=== PATIENT | female | born 1980 | race Caucasian/White ===

== ENCOUNTER 2018-05-06 05:40 | Day surgery (SDC) | payer OTHER ==
[~2018-05-06] VITALS: Ht 170.2 cm; Wt 170.1 kg
--- NOTE | ~2018-05-06 | OR ---
[facility] [address] [place], [place] [address] Draft DATE OF OPERATION: 05/06/2018 SURGEON: Jesus Helm MD PREOPERATIVE DIAGNOSIS: Interstitial cystitis. POSTOPERATIVE DIAGNOSIS: Interstitial cystitis. PROCEDURE PERFORMED: Diagnostic cystoscopy with hydrodistention. ANESTHESIA: General with LMA. ESTIMATED BLOOD LOSS: None. COMPLICATIONS: None. SPECIMENS: None. INDICATIONS FOR PROCEDURE: Joann is a very pleasant 38-year-old female with a longstanding history of urinary urgency, frequency, dysuria, and suprapubic symptoms. She was just recently diagnosed with interstitial cystitis and has been managing her symptoms with diet control and oral Pyridium. Our most recent office visit, I discussed the option of undergoing hydrodistention with the patient. After a discussion of the risks and benefits of the procedure, the patient agreed to proceed. OPERATIVE FINDINGS: On cystoscopy, there was no evidence of any suspicious masses, lesions, or stones within the bladder. Bilateral ureteral orifices are in their normal anatomic location, effluxing clear urine. Overall, the patient's bladder appeared rather normal, given her history of severe symptoms. There was just one area on the posterior bladder wall that revealed some superficial mucosal blood vessels. I did not see any diffuse areas of erythema or Hunner's ulcers. PATIENT NAME: JOANN SMITH OPERATIVE REPORT DATE OF : 80 REPORT #: [id number] PHYSICIAN: JESUS HELM MD PCP: JIGNESH GARCIA REPORT IS CONFIDENTIAL AND NOT TO BE RELEASED WITHOUT AUTHORIZATION [facility] [address] [place], [place] [address] Draft The patient's total bladder capacity was approximately 1100 mL. This was held within the patient's bladder for around 8 minutes. DESCRIPTION OF PROCEDURE: After informed consent was obtained, the patient was taken back to the operating room. She was transferred from the [facility] to the operating room table, where general anesthesia was induced. She was placed in the dorsal lithotomy position and the genitalia prepped and draped in standard sterile fashion. Using a 30-degree lens on a 22.5 Telugu introducer, rigid cystoscope was inserted through the urethra into her bladder under direct visualization. The patient's bladder was then emptied of urine. I then performed a diagnostic cystoscopy and evaluated all areas of the bladder in court, including the floor dome, trigone, and lateral tobias. Please see above findings. I then filled the patient's bladder with a total of 1100 mL of water. The patient's bladder remained distended for approximately 8 minutes. I then emptied the patient's bladder and removed the cystoscope. Two 16.2/30 belladonna and opioid suppositories were then inserted into the patient's rectum at the end of the procedure. The procedure was then terminated. The patient tolerated the procedure well without any complications. She will now be transferred to the Postanesthesia Care Unit in stable condition. DISPOSITION: I discussed the details of today's procedure with the patient's significant other and answered all his questions. I explained to him that the patient was given two belladonna and opioid suppository to prevent bladder spasms that she is waking up. She will also be sent home today with Bactrim for a total of 5 days for prophylaxis, along with additional Pyridium as needed for dysuria. She will be scheduled to return to clinic in approximately 6 weeks for her first postoperative evaluation. MD JAIME Byrd/STARLA /[id number] Copies: PATIENT NAME: JOANN SMITH OPERATIVE REPORT DATE OF : 80 REPORT #: [id number] PHYSICIAN: JESUS HELM MD PCP: JIGNESH GARCIA REPORT IS CONFIDENTIAL AND NOT TO BE RELEASED WITHOUT AUTHORIZATION [address] [place] [address] Draft ~ PATIENT NAME: JOANN SMITH OPERATIVE REPORT DATE OF : 80 REPORT #: [id number] PHYSICIAN: JESUS HELM MD PCP: JIGNESH GARCIA REPORT IS CONFIDENTIAL AND NOT TO BE RELEASED WITHOUT AUTHORIZATION
[~2018-05-06 05:40] MED LIST: ALPRAZOLAM1 MG PO; DEPO-PROVER150 MG/ML IM; DIFLUCAN150 MG PO; DIPHENOXYLATE-1 EACH PO; GABAPENTIN100 MG PO; NORTRIPTYLINE H10 MG PO; PSEUDOEPHEDRINE30 MG PO; PYRIDIUM200 MG PO; RANITIDINE HCL150 MG PO; SERTRALINE HCL100 MG PO; SERTRALINE HCL50 MG PO; VITAMIN D2000 UNI1 PO
[2018-05-06] MEDS ORDERED: TOPROL XL25 MG PO (06:48)
--- NOTE | 2018-05-06 08:47 | NUR ---
05/06/18 0847 Liberty Mayes 0869 PT ARRIVED TO PACU WITH ORAL AIRWAY IN PLACE.
--- NOTE | 2018-05-06 08:59 | NUR ---
PT IS BACK TO FROM PACU. SHE IS AWAKE AND REPORTS PAIN AT A 3/10. NO NAUSEA AT THIS TIME. SIGNIFICANT OTHER IS AT THE BEDSIDE. CALL LIGHT IS WITHIN REACH. WATER ON BEDSIDE TABLE. NO OTHER C/O'S AT THIS TIME WILL REASSESS WITHIN THE HOUR.
--- NOTE | 2018-05-06 10:04 | NUR ---
PT'S PAIN IS DECREASING. SHE IS AGREEABLE TO EATING SOME JELLO. NO OTHER C/O'S AT THIS TIME.
--- NOTE | 2018-05-06 10:40 | NUR ---
LE 1005: PT IS ASSISTED UP OOB TO THE RESTROOM WHERE IS ABLE TO VOID 100ML'S. SHE IS ALSO GIVEN AZO AT THIS TIME. PT REPORTS THAT SHE WOULD LIKE TO GO HOME. SHE IS INSTRUCTED ON BEST HOW TO DRESS, GIVEN DC INSTRUCTIONS, AND HER IV IS REMOVED.
--- NOTE | 2018-05-06 11:46 | EKG ---
[facility] [address] [facility] [place], [place] [address] Signed Normal sinus rhythm Normal ECG No previous ECGs available Confirmed by KEIRA WILEY MD ([id number]) on 05/06/2018 11:45:51 AM Electronically Signed By: KEIRA WILEY MD 05/06/18 1146 PATIENT NAME: MITA SMITH Electrocardiogram DATE OF : 80 PHYSICIAN: KEIRA WILEY MD REPORT #: [id number] REPORT IS CONFIDENTIAL AND NOT TO BE RELEASED WITHOUT AUTHORIZATION
--- NOTE | 2018-05-06 13:14 | NUR ---
VISITED WITH PT BEFORE SURGERY. SHE IS ALERT, ORIENTED AND SUPPORTED BY HER SIG. MARLINE KATHLEEN. THEY BOTH SEEM PREPARED, PT REQUESTED PRAYER, WILL FOLLOW NEEDED
== END 2018-05-06 10:30 | disposition home or self-care (01) ==
LOC: DS 05:40 → OPS 05:40 → DS 06:45 → OPS 10:30
PROVIDERS: Urology
PROC: 0T7B8ZZ Dilation of Bladder, Via Natural or Artificial Opening Endoscopic (ICD-10-PCS; principal; 2018-05-06 06:45)
DX: N30.10 Interstitial cystitis (chronic) without hematuria (principal); F32.9 Major depressive disorder, single episode, unspecified; J45.909 Unspecified asthma, uncomplicated; M06.9 Rheumatoid arthritis, unspecified; E66.01 Morbid (severe) obesity due to excess calories; Z88.0 Allergy status to penicillin; Z88.1 Allergy status to other antibiotic agents; Z91.041 Radiographic dye allergy status; Z79.899 Other long term (current) drug therapy; Z68.43 Body mass index [BMI] 50.0-59.9, adult
CPT/HCPCS: 00910; 84703; 93005; 93010; J0696; J2250; J2405; J2704; J3010; J7120

== ENCOUNTER 2020-10-25 09:50 | Day surgery (SDC) | payer OTHER ==
[~2020-10-25 09:50] MED LIST changes: +BUSPIRONE HCL5 MG PO; -GABAPENTIN100 MG PO; +MECLIZINE HCL12.5 MG PO; +NEURONTIN300 MG PO; +PANTOPRAZOLE SO20 MG PO; +SPIRONOLACTONE50 MG PO; +TOPROL XL25 MG PO
--- NOTE | 2020-10-25 13:55 | NUR ---
10/25/20 1355 [place] 1348 PT ARRIVED TO PACU WITH ORAL AIRWAY IN PLACE, RESP EVEN AND UNLABROED. VSS. PT NONAROUSBALE ON 6L VIA MASK.
--- NOTE | 2020-10-25 14:51 | NUR ---
PT ARRIVES TO DS RM 12 FROM PACU AWAKE AND ALERT. PT DENIES ANY NAUSEA AND TOLERATES WATER AND PUDDING. PT STATES PAIN 3/10 AND TOLERABLE AT THIS TIME. PER REPORT FROM ARTHUR, RN PT STATES "HEAVY CHEST." PT STATES TO THIS RN THAT "I AM FINE" WHEN ASKED ABOUT BREATHING, PT ENCOURAGED TO USE CALL LIGHT ANY CONCERNS. PT SPOUSE AT BEDSIDE, CALL LIGHT WITHIN REACH. YARITZA ESPINOSA ON WARM.
--- NOTE | 2020-10-25 15:01 | NUR ---
PT PROVIDED SECOND PUDDING AND SODA PER REQUEST, TOLERATES WEL.
--- NOTE | 2020-10-25 16:28 | NUR ---
1530 HELPED PT UP TO BATHROOM SHE VOIDED 50ML OF CLEAR YELLOW URINE. CALLED DR HELM TO SEE IF THIS WAS SUFFICIANT TO DISCHARGE HER, DR SUTTON FOR DISCHARGE.
--- NOTE | 2020-10-27 18:28 | OR ---
[facility] [address] [place], [place] [address] Signed DATE OF OPERATION: 10/25/2020 SURGEON: Jesus Helm MD PREOPERATIVE DIAGNOSIS: Interstitial cystitis. POSTOPERATIVE DIAGNOSIS: Interstitial cystitis. NAME OF PROCEDURE: Diagnostic cystoscopy with hydrodistention. ANESTHESIA: General. ESTIMATED BLOOD LOSS: None. COMPLICATIONS: None. SPECIMENS: None. DRAINS: None. INDICATIONS FOR PROCEDURE: Joann is a very pleasant 40-year-old female, who has a well known history of interstitial cystitis. She underwent her 1st cystoscopy with hydrodistention in the summer time of 2019, and reported to me that she did feel as though she responded to the procedure. She recently presented to me with request to undergo a 2nd cystoscopy with hydrodistention for management of her [id number] interstitial cystitis. She presents today to undergo the aforementioned procedure. OPERATIVE FINDINGS: 1. On cystoscopy, there was no evidence of any suspicious masses, lesions, or stones. Bilateral ureteral orifices are in their normal anatomic location. There is diffuse cystitis cystica noted throughout her bladder wall; however, no evidence of any Hunner Electronically Signed By: JESUS HELM MD 10/27/20 1828 PATIENT NAME: JOANN SMITH OPERATIVE REPORT DATE OF : 80 REPORT #: [id number] PHYSICIAN: JESUS HELM MD PCP: JIGNESH GARCIA REPORT IS CONFIDENTIAL AND NOT TO BE RELEASED WITHOUT AUTHORIZATION [facility] [address] [place], [place] [address] Signed ulcers or other IC associated lesions. 2. The patient's bladder was filled to a total capacity of 1050 mL for a total of 8 minutes without any complication. The patient held the irrigant into the bladder a majority of the time except for when she reached peak volumes of around 1050 mL. At the end of the distention, the patient's bladder was then drained and repeat cystoscopy revealed no evidence of any active hemorrhage, Hunner ulcers, or petechiae within the bladder. DESCRIPTION OF PROCEDURE: After informed consent was obtained, the patient was taken back to the operating room. She was transferred from the [facility] to the operating room table, where general anesthesia was induced. She was placed in the dorsal lithotomy position and her genitalia were prepped and draped in a standard sterile fashion. Using a 30-degree lens on a 22.5-Vietnamese introducer, rigid cystoscope was inserted through the urethra into her bladder under direct visualization. Panendoscopic views of the bladder were then obtained. Please see above findings. I then emptied the patient's bladder completely and then began to fill the patient per gravity flow. When the patient reached maximum distention, this was maintained for a total of 8 minutes, keeping a close eye on the patient's urethra to view any active leakage coming from the bladder during the distention. Overall, her bladder appears to have relatively good compliance. After about 8 minutes, the patient's bladder was drained of a total of 1050 mL of irrigation fluid. Repeat cystoscopy was then performed. Please see above findings. The patient's bladder was then again drained and the cystoscope was removed. The procedure was then terminated. The patient tolerated the procedure well without any complication. She will now be transferred to the postanesthesia care unit in stable condition. DISPOSITION: The patient will be discharged to home later today, when she awakes from her general anesthetic. I discussed the details of today's procedure with her significant other and answered all of his questions. She will be sent home today with Pyridium, Percocet 7.5/325 dispense #30 p.r.n. pain, along with Cipro 500 mg p.o. b.i.d. for a total of 7 days. She will be scheduled to return to clinic in approximately 2 to 3 months for a postoperative check after undergoing hydrodistention. Jesus Helm MD AR/JOSEL /[id number] Electronically Signed By: JESUS HELM MD 10/27/20 1828 PATIENT NAME: JOANN SMITH OPERATIVE REPORT DATE OF : 80 REPORT #: [id number] PHYSICIAN: JESUS HELM MD PCP: JIGNESH GARCIA REPORT IS CONFIDENTIAL AND NOT TO BE RELEASED WITHOUT AUTHORIZATION [address] [place], [place] [address] Signed Copies: ~ Electronically Signed By: JESUS HELM MD 10/27/20 1828 PATIENT NAME: LESLY SMITHSaray KATZE OPERATIVE REPORT DATE OF : 80 REPORT #: [id number] PHYSICIAN: JESUS HELM MD PCP: JIGNESH GARCIA REPORT IS CONFIDENTIAL AND NOT TO BE RELEASED WITHOUT AUTHORIZATION
== END 2020-10-25 16:00 | disposition home or self-care (01) ==
LOC: OPS 09:50 → DS 09:50 → OPS 16:00
PROVIDERS: ATTEND Urology
DX: N30.10 Interstitial cystitis (chronic) without hematuria (principal); N30.80 Other cystitis without hematuria; M06.9 Rheumatoid arthritis, unspecified; E66.9 Obesity, unspecified; F32.9 Major depressive disorder, single episode, unspecified; J45.909 Unspecified asthma, uncomplicated; Z68.44 Body mass index [BMI] 60.0-69.9, adult; Z88.0 Allergy status to penicillin; Z91.010 Allergy to peanuts; Z88.1 Allergy status to other antibiotic agents; Z88.8 Allergy status to other drugs, medicaments and biological substances; Z91.018 Allergy to other foods
CPT/HCPCS: 00910; J0744; J1100; J1885; J2001; J2250; J2405; J2704; J3010; J7121